=== PATIENT | male | born 1945 | race African-American/Black ===

== ENCOUNTER 2019-10-20 07:45 | Emergency (ER) | payer MEDICARE, MEDICAID ==
[~2019-10-20] VITALS: Ht 175.3 cm; Wt 77.0 kg
[~2019-10-20 07:45] MED LIST: AMLO10TA80 PO; ASPI-1497 PO; IPRA4AER IH; LOSA1TAB34 PO; LOVA20TA2 PO; METF-414 PO; POLY250017 MC; TAMS-11 PO
[2019-10-20] MEDS ORDERED: TETANUS, DIPHTHERIA, PERTUSSIS VAC/PF 0.5ML (>7YR OLD) IM ONE (08:15)
[2019-10-20] MEDS ORDERED: LIDOCAINE HCL 1% 20ML VIAL (Pyxis) INJ INFIL ONE (08:15)
[2019-10-20] MEDS ORDERED: BACITRACIN ZINC OINT UDPKT TOP ONE (09:00)
[2019-10-20] MEDS ORDERED: ACETAMINOPHEN 325MG TABLET PO STA (09:03)
[2019-10-20] MEDS ORDERED: LIDOCAINE HCL/EPINEPHRINE 1%-EPI 1:100,000 20 ML VIAL ONE (10:29)
[2019-10-20] MEDS ORDERED: LIDOCAINE 1%/EPI 1:100,000 10 ML VIAL IJ ONE (11:00)
[2019-10-20 11:12] VITALS: BP 151/74
== END 2019-10-20 11:13 | disposition home or self-care (01) ==
LOC: ER 07:45
DX: S01.81XA Laceration without foreign body of other part of head, initial encounter (principal); S50.811A Abrasion of right forearm, initial encounter; X99.8XXA Assault by other sharp object, initial encounter; Y93.89 Activity, other specified; Y92.89 Other specified places as the place of occurrence of the external cause; Z23 Encounter for immunization; E11.9 Type 2 diabetes mellitus without complications; I10 Essential (primary) hypertension; J44.9 Chronic obstructive pulmonary disease, unspecified
CPT/HCPCS: 12002; 90471; 90715; 99283; J3490

== ENCOUNTER 2019-10-22 11:25 | Emergency (ER) | payer MEDICARE, MEDICAID ==
[~2019-10-22] VITALS: Ht 175.3 cm; Wt 85.0 kg
[2019-10-22 13:57] VITALS: BP 137/65
== END 2019-10-22 13:58 | disposition home or self-care (01) ==
LOC: ER 11:25
DX: Z48.00 Encounter for change or removal of nonsurgical wound dressing (principal); M79.89 Other specified soft tissue disorders
CPT/HCPCS: 99281

== ENCOUNTER 2019-11-02 12:23 | Emergency (ER) | payer MEDICARE, MEDICAID ==
[~2019-11-02] VITALS: Ht 165.1 cm; Wt 83.9 kg
[2019-11-02 12:25] VITALS: BP 146/71
== END 2019-11-02 13:19 | disposition home or self-care (01) ==
LOC: ER 12:23
DX: Z48.02 Encounter for removal of sutures (principal); E11.9 Type 2 diabetes mellitus without complications; I10 Essential (primary) hypertension; Z79.82 Long term (current) use of aspirin; Z79.899 Other long term (current) drug therapy
CPT/HCPCS: 99281